=== PATIENT | male | born 1995 | race African-American/Black ===

== ENCOUNTER 2022-12-29 17:50 | Emergency (ER) | payer OTHER ==
[~2022-12-29] VITALS: Ht 182.8 cm
[2022-12-29] MEDS ORDERED: AMOX-CLAV 875-1 EACH PO (20:50)
== END 2022-12-29 21:20 | disposition home or self-care (01) ==
LOC: ED 17:50
DX: J02.0 Streptococcal pharyngitis (principal)

== ENCOUNTER 2023-03-11 21:22 | Emergency (ER) | payer OTHER ==
[~2023-03-11] VITALS: Ht 182.8 cm
[~2023-03-11 21:22] MED LIST: AMOX-CLAV 875-1 EACH PO
== END 2023-03-11 22:19 | disposition home or self-care (01) ==
LOC: ED 21:22
DX: S61.012A Laceration without foreign body of left thumb without damage to nail, initial encounter (principal); Z79.2 Long term (current) use of antibiotics; W27.8XXA Contact with other nonpowered hand tool, initial encounter; Y93.89 Activity, other specified; Y92.89 Other specified places as the place of occurrence of the external cause; Y99.8 Other external cause status

== ENCOUNTER 2023-03-25 09:47 | Emergency (ER) | payer OTHER ==
[2023-03-25 10:31] LABS: BASO % 0.4 % (0.0-1.0); EOS # 0.1 10*3/uL (0.0-0.4); EOS % 2.3 % (1.0-4.0); HEMATOCRIT 45.3 % (42.0-52.0); LYMPH # 1.5 10*3/uL (1.3-4.4); LYMPH % 28.6 % (27.0-41.0); MEAN CELL VOLUME 92.1 fl (80.0-94.0); MEAN CORPUSCULAR HGB 31.1 pg (27.0-31.0); MEAN CORPUSCULAR HGB CONC 33.8 g/dl (33.0-37.0); MEAN PLATELET VOLUME 8.6 fl (9.6-12.3); MONO # 0.5 10*3/uL (0.1-1.0); MONO % 9.4 % (3.0-9.0); NEUT # 3.2 10*3/uL (2.3-7.9); NEUT % 59.1 % (47.0-73.0); PLATELET COUNT AUTOMATED 293 10*3/uL (130-400); RED BLOOD COUNT 4.92 10*6/uL (4.50-5.90); RED CELL DISTRI WIDTH 12.2 % (0-14.5); WHITE BLOOD COUNT 5.3 10*3/uL (4.8-10.8)
[2023-03-25 10:42] LABS: ACT PARTIAL THROMBO TIME 29.4 SECONDS (20.0-32.1); INTERNATIONAL NORM RATIO 1.1 (2.0-3.5)
[2023-03-25 11:19] LABS: ALKALINE PHOSPHATASE 57 U/L (46-116); BUN 11 mg/dl (9-23); CHLORIDE 105 mmol/L (98-107); LIPASE 37 U/L (12-53); POTASSIUM 3.9 mmol/L (3.4-5.1); SGPT/ALT 23 U/L (10-49); TOTAL PROTEIN 7.4 gm/dL (6.0-8.0)
== END 2023-03-25 12:24 | disposition home or self-care (01) ==
LOC: ED 09:47
PROVIDERS: Internal Medicine
DX: S61.012D Laceration without foreign body of left thumb without damage to nail, subsequent encounter (principal); J02.9 Acute pharyngitis, unspecified; Z87.891 Personal history of nicotine dependence; X58.XXXD Exposure to other specified factors, subsequent encounter

== ENCOUNTER 2024-05-12 12:32 | Emergency (ER) | payer OTHER ==
[~2024-05-12] VITALS: Ht 185.4 cm; Wt 117.9 kg
[2024-05-12] MEDS ORDERED: VIBRAMYCIN100 MG PO (12:53)
[2024-05-12] MEDS ORDERED: METRONIDAZOLE 500 MG TAB PO ONE (12:55)
[2024-05-12] MEDS ORDERED: Doxycycline Hyclate 100 MG CAP PO ONE (12:55)
[2024-05-12 13:10] LABS: BILIRUBIN Negative (Negative); BLOOD Negative (Negative); CLARITY Clear (Clear); COLOR Yellow (Yellow); GLUCOSE Negative (Negative); KETONE Trace (Negative); LEUKO ESTERASE Negative (Negative); NITRITE Negative (Negative); SPECIFIC GRAVITY >= 1.030 (1.001-1.030)
[2024-05-12 13:30] LABS: YEAST 1+
[2024-05-12 13:32] LABS: BACTERIA 2+
[2024-05-20] MEDS ORDERED: VIBRAMYCIN100 MG PO (12:28)
== END 2024-05-12 13:10 | disposition home or self-care (01) ==
LOC: ED 12:32
PROVIDERS: Nurse Practitioner Family
DX: A64 Unspecified sexually transmitted disease (principal); Z87.891 Personal history of nicotine dependence; Z79.899 Other long term (current) drug therapy